=== PATIENT | female | born 1985 | race Caucasian/White ===

== ENCOUNTER 2016-12-18 04:04 | Inpatient (IN) | payer BC, OTHER ==
[2016-12-18] MEDS ORDERED: OBEPIDURAL* 250 ML ONE (05:43)
[2016-12-18 06:32] LABS: Hematocrit 33 % (35-47); Hemoglobin 10.8 g/dl (12.0-16.0); Mean Corpuscular HGB Conc 33 g/dl (31-36); Mean Corpuscular Hemoglobin 27 pg (27-31); Mean Corpuscular Volume 82 fL (80-97); Mean Platelet Volume 8 um3 (7.4-10.4); Red Blood Count 3.97 10^6/ul (4.0-5.4); Red Cell Distribution Width 16 % (10.5-15); White Blood Count 15.7 10^3/ul (3.5-10.8)
[2016-12-18] MEDS ORDERED: fentaNYL* 50 MCG/ML 2 ML VIAL (100 MCG VIAL) ONE ×2 (07:34→13:59)
[2016-12-18] MEDS ORDERED: Sodium Citrate/Citric Acid* 15 ML UDC PO PRN (08:23)
[2016-12-18] MEDS ORDERED: Phenylephrine IV* 40 MCG/ML 10 ML SYRINGE IV PUSH PRN ×2 (08:23)
[2016-12-18] MEDS ORDERED: Famotidine TAB* 20 MG PO PRN (08:23)
[2016-12-18] MEDS ORDERED: OBEPIDURAL* 250 ML EPIDURAL SCH (09:00)
[2016-12-18] MEDS ORDERED: Oxytocin in LR* 20 UNITS/1,000 ML BAG IVPB ONE (09:32)
[2016-12-18] MEDS ORDERED: Oxytocin in LR* 20 UNITS/1,000 ML BAG IVPB SCH (10:00)
[2016-12-18] MEDS ORDERED: Sodium Citrate/Citric Acid* 15 ML UDC ONE (13:28)
[2016-12-18] MEDS ORDERED: ceFOXitin 2 GM IVPREMIX* 2 GM/50 ML BAG ONE (13:28)
[2016-12-18] MEDS ORDERED: ceFOXitin 2 GM IVPREMIX* 2 GM/50 ML BAG IVPB ONE (13:40)
[2016-12-18] MEDS ORDERED: oxyCODONE/Acetamin 5/325 MG* TAB PO PRN ×3 (13:44→14:43)
[2016-12-18] MEDS ORDERED: Witch Hazel PAD* JAR TOPICAL PRN (13:44)
[2016-12-18] MEDS ORDERED: Glycerin ADULT SUPP PR PRN (13:44)
[2016-12-18] MEDS ORDERED: Phenylephrine IV* 40 MCG/ML 10 ML SYRINGE ONE (13:59)
[2016-12-18] MEDS ORDERED: OXYTOCIN* 10 UNITS/ML 1 ML VIAL ONE (13:59)
[2016-12-18] MEDS ORDERED: Morphine PF AMP (0.5MG/ML)* 5 MG/10 ML AMP ONE (13:59)
[2016-12-18] MEDS ORDERED: Sodium Bicarbonate 8.4% IV* 50 ML VIAL ONE (14:00)
[2016-12-18] MEDS ORDERED: Ibuprofen TAB* 600 MG PO SCH (14:00)
[2016-12-18] MEDS ORDERED: Lidocaine 2% PF* 10 ML AMP ONE (14:00)
[2016-12-18] MEDS ORDERED: Ondansetron INJ* 2 MG/ML VIAL IV PRN ×2 (14:31→14:43)
[2016-12-18] MEDS ORDERED: fentaNYL* 50 MCG/ML 2 ML VIAL (100 MCG VIAL) IV PRN (14:31)
[2016-12-18] MEDS ORDERED: Naloxone* 0.4 MG/ML 1 ML VIAL IV PRN (14:43)
[2016-12-18] MEDS ORDERED: diPHENhydraMINE IV* 50 MG/ML 1 ml VIAL (BENADRYL) IV PRN (14:43)
[2016-12-18] MEDS ORDERED: Ondansetron INJ* 2 MG/ML VIAL ONE (14:58)
[2016-12-18] MEDS: Docusate CAP* 100 MG PO SCH ×2 (17:04→22:30)
[2016-12-18] MEDS: Simethicone TAB* 80 MG TAB.CHEW PO SCH (22:31)
[2016-12-18] MEDS: Ketorolac INJ* 30 MG/ML 1 ML VIAL IV PRN (22:32)
[2016-12-19] MEDS: Ketorolac INJ* 30 MG/ML 1 ML VIAL IV PRN (04:41)
--- NOTE | 2016-12-19 06:24 | OP ---
DATE OF OPERATION: 12/18/16 - ROOM #[id number] DATE OF : 85 SURGEON: Soniya Fountain MD BELT SANDER STONE: Katie Corado CNM ANESTHESIOLOGIST: Dr. Jean-Baptiste. ANESTHESIA: Epidural. PRE-OP DIAGNOSIS: 40 weeks gestation with face presentation. POST-OP DIAGNOSIS: 40 weeks gestation with face presentation. OPERATIVE PROCEDURE: Primary low-transverse section. ESTIMATED BLOOD LOSS: 900 cc. URINE OUTPUT: 300 cc. IV FLUIDS: 1300 cc lactated Ringer's. MATERIALS TO LAB: Cord blood. INDICATIONS: This patient was a 31-year-old 1, para 0, who presented in active labor this morning. The patient received an epidural for pain control and she made steady cervical change; however, the head did not descend. When the cervix was 7 cm dilated and the head was still at -2 to -3 station, ultrasound was performed at the bedside and noted that there was still a vertex presentation. I was consulted and on examination the presenting part did not feel smooth, but still also did not feel like umbilical cord or a limb. The membranes are ruptured, productive of thick meconium, and on further palpation with the membranes gone, the face was palpated. As the patient had been in labor for several hours without descent, the fetus was clearly not descending into the pelvis in this malpresentation. She was extensively counseled and I recommended a section. She agreed and consent was signed. FINDINGS: Normal-appearing uterus, fallopian tubes, and ovaries. Delivery was productive of a female infant, weighing 7 pounds 9 ounces, Apgars of 9 and 9. Time of delivery was 1436. Position of the fetus was a face presentation that was somewhat transverse. COMPLICATIONS: None. DESCRIPTION OF PROCEDURE: The risks, benefits, and alternatives were described to the patient and informed consent was obtained. The patient was taken to the operating room with IV running where epidural anesthesia was induced and found to be adequate. The patient was prepped and draped in the normal sterile fashion in the dorsal supine position with leftward tilt. A Pfannenstiel skin incision was made with a scalpel and this was carried down to the underlying fascia sharply. The fascia was then scored in the midline with the scalpel. The incision was extended using Peters scissors. The rectus muscles were dissected off the rectus fascia using blunt and sharp dissection. The rectus muscles were in the midline bluntly. The peritoneum was also entered bluntly. A bladder blade was placed. A bladder flap was created sharply using Metzenbaum scissors. A low transverse uterine incision was made with the scalpel. This was carried down to the amniotic cavity which was productive of clear fluid. The incision was extended with blunt traction. The head was elevated to the level of the incision taking care to avoid injuring the face while lifting. The head was then delivered through the incision. With fundal pressure, the shoulders and body delivered without difficulty. The had excellent tone and cried immediately on delivery. The cord was doubly clamped and cut. The was then handed to the awaiting licensed real estate broker. Cord blood was collected. The placenta then delivered with manual extraction. The uterus was then exteriorized and cleared of all clots and debris. The uterine incision was reapproximated using 0 Polysorb in a running-locked fashion. A second layer of imbricating sutures of 0 Polysorb was also placed with good hemostasis. The posterior cul-de-sac was irrigated with saline. The uterus was then returned to the abdomen, and the incision was reinspected and noted to be hemostatic. The peritoneum was closed with 3-0 Polysorb in a running fashion. The fascia was closed with 0 Polysorb in a running fashion. Subcutaneous tissues were reapproximated using 3-0 Polysorb in interrupted sutures. The skin was then closed with 4-0 Monocryl in a subcuticular stitch. Mastisol and Steri-Strips were placed over the incision which was then covered with a sterile bandage. The patient tolerated the procedure well. Sponge, lap, and needle counts were correct x2. [id number]/[facility] #: [id number] [facility]
[2016-12-19 06:32] LABS: Hematocrit 28 % (35-47); Hemoglobin 9.2 g/dl (12.0-16.0); Mean Corpuscular HGB Conc 34 g/dl (31-36); Mean Corpuscular Hemoglobin 28 pg (27-31); Mean Corpuscular Volume 82 fL (80-97); Mean Platelet Volume 8 um3 (7.4-10.4); Red Blood Count 3.34 10^6/ul (4.0-5.4); Red Cell Distribution Width 16 % (10.5-15); White Blood Count 15.2 10^3/ul (3.5-10.8)
[2016-12-19] MEDS: Simethicone TAB* 80 MG TAB.CHEW PO SCH ×5 (07:53→21:32)
[2016-12-19] MEDS ORDERED: Ibuprofen TAB* 600 MG ONE (08:40)
[2016-12-19] MEDS: Docusate CAP* 100 MG PO SCH ×3 (08:44→21:32)
[2016-12-19] MEDS: Ferrous Gluconate TAB* 324 MG TAB PO SCH ×2 (08:45→21:32)
[2016-12-19] MEDS: oxyCODONE/Acetamin 5/325 MG* TAB PO PRN ×3 (08:46→21:32)
[2016-12-19] MEDS: Ibuprofen TAB* 600 MG PO SCH ×2 (15:11→21:33)
[2016-12-20] MEDS: Ibuprofen TAB* 600 MG PO SCH ×4 (03:31→20:46)
[2016-12-20] MEDS: oxyCODONE/Acetamin 5/325 MG* TAB PO PRN (03:32)
[2016-12-20] MEDS: Docusate CAP* 100 MG PO SCH ×3 (09:29→20:46)
[2016-12-20] MEDS: Simethicone TAB* 80 MG TAB.CHEW PO SCH ×4 (09:30→20:46)
[2016-12-20] MEDS: Ferrous Gluconate TAB* 324 MG TAB PO SCH ×2 (09:30→20:46)
[2016-12-20 21:31] VITALS: BP 121/69
[2016-12-21] MEDS: Ibuprofen TAB* 600 MG PO SCH ×2 (02:40→08:01)
[2016-12-21] MEDS: Docusate CAP* 100 MG PO SCH (08:00)
[2016-12-21] MEDS: Simethicone TAB* 80 MG TAB.CHEW PO SCH (08:01)
[2016-12-21] MEDS: Ferrous Gluconate TAB* 324 MG TAB PO SCH (08:02)
== END 2016-12-21 09:40 | disposition home or self-care (01) | DRG 540 ==
LOC: MCHOBOUT 04:04 → MCHOB 05:20
PROVIDERS: ADMIT Midwife; ATTEND Obstetrics & Gynecology
PROC: 10907ZC Drainage of Amniotic Fluid, Therapeutic from Products of Conception, Via Natural or Artificial Opening (ICD-10-PCS; 2016-12-18)
PROC: 10D00Z1 Extraction of Products of Conception, Low, Open Approach (ICD-10-PCS; principal; 2016-12-18 14:06)
DX: O32.3XX0 Maternal care for face, brow and chin presentation, not applicable or unspecified (principal); E66.01 Morbid (severe) obesity due to excess calories; O77.0 Labor and delivery complicated by meconium in amniotic fluid; O99.214 Obesity complicating childbirth; O90.81 Anemia of the puerperium; O99.344 Other mental disorders complicating childbirth; F41.9 Anxiety disorder, unspecified; D64.9 Anemia, unspecified; Z68.39 Body mass index [BMI] 39.0-39.9, adult; Z3A.40 40 weeks gestation of pregnancy; Z37.0 Single live birth
CPT/HCPCS: 36415; 76815; 85025; 86850; 86900; 86901; A9270-GY; J0694; J1885; J2001; J2405; J2590; J3010

== ENCOUNTER 2019-04-02 18:37 | Emergency (ER) | payer BC, OTHER ==
[2019-04-02 19:37] LABS: ABS Eosinophils 0.1 10^3/ul (0-0.6); ABS Lymphocytes 2.7 10^3/ul (1.0-4.8); ABS Monocytes 0.8 10^3/ul (0-0.8); ABS Neutrophils 9.7 10^3/ul (1.5-7.7); Eosinophil % 0.6 %; Hematocrit 32 % (35-47); Hemoglobin 11.2 g/dL (12.0-16.0); Lymphocyte % 20.2 %; Mean Corpuscular HGB Conc 36 g/dL (31-36); Mean Corpuscular Hemoglobin 30 pg (27-31); Mean Corpuscular Volume 84 fL (80-97); Mean Platelet Volume 7.5 fL (7.4-10.4); Platelet Count 355 10^3/uL (150-450); Red Blood Count 3.76 10^6 /uL (3.70-4.87); Red Cell Distribution Width 14 % (10-15); White Blood Count 13.3 10^3/uL (3.5-10.8)
--- NOTE | 2019-04-02 19:43 | ED ---
HPI Chest Pain - HPI Summary HPI Summary: Patient is a 33 y/o F presenting to the ED for a chief complaint of intermittent palpitations that began around 13:00 on 04/01/19 and continued into 04/02/19. Patient is present with her mother. Patient describes the palpitations as a "flutter" and "irregular" sensation. The palpitations are described as intermittent and lasting for 3-10 seconds before resolving. She also notes a headache that she attributes to being . Patient denies lightheadedness, dizziness, shortness of breath, diaphoresis, or nausea. She reports life changes recently, so she suspects her symptoms could be due to anxiety. Patient exercises, but denies any changes in exercise habits since the start of her . Patient is currently 18 weeks , and this is her second . During her last , she had similar palpitations and anxiety. PMHx is significant for PCOS and anxiety for which she took Lexapro, which she stopped taking in 2016. Any history of cardiac problems is denied. Patient notes being tested in 2006 for thyroid issues without any remarkable findings. She denies tobacco use. - History of Current Complaint Chief Complaint: EDDysrhythmPalp Time Seen by Provider: 04/02/19 19:33 Hx Obtained From: Patient Onset/Duration: Started Hours Ago - On 04/01/19, Atraumatic, Still Present Timing: Intermittent, Lasting Seconds - 3-10 seconds Initial Severity: Moderate Current Severity: Moderate Pain Intensity: 4 Pain Scale Used: 0-10 Numeric Chest Pain Location: Diffuse Chest Pain Radiates: No Character: Fluttering Aggravating Factor(s): Other: - Recent stress Alleviating Factor(s): Nothing Associated Signs and Symptoms: Positive: Headaches, Palpitations. Negative: Dizziness, Shortness of Breath, Lightheadedness, Diaphoresis, Nausea - Allergy/Home Medications Allergies/Adverse Reactions: Allergies Allergy/AdvReac Type Severity Reaction Status Date / Time amoxicillin [From Augmentin] Allergy Diarrhea Verified 04/02/19 19:55 clavulanic acid Allergy Diarrhea Verified 04/02/19 19:55 [From Augmentin] Latex, Natural Rubber Allergy Rash Verified 04/02/19 19:55 PMH/Surg Hx/FS Hx/Imm Hx Previously Healthy: Yes Endocrine/Hematology History: Denies: Hx Diabetes History: Reports: Other Problems/Disorders - PCOS Sensory History: Denies: Hx Legally Blind, Hx Deafness Opthamlomology History: Denies: Hx Legally Blind EENT History: Denies: Hx Deafness Psychiatric History: Reports: Hx Anxiety - no meds - Surgical History Surgical History: None Surgery Procedure, Year, and Place: None Infectious Disease History: No Infectious Disease History: Denies: Traveled Outside the [place] in Last 30 Days - Family History Known Family History: Negative: Diabetes - Social History Occupation: Employed Full-time Lives: With Family Alcohol Use: None Hx Substance Use: No Substance Use Type: Reports: None Hx Tobacco Use: No Smoking Status (MU): Never Smoked Tobacco Review of Systems Negative: Skin Diaphoresis Positive: Palpitations Negative: Shortness Of Breath Negative: Nausea Neurological: Other - Negative lightheadedness or dizziness Positive: Headache Positive: Anxious All Other Systems Reviewed And Are Negative: Yes Physical Exam - Summary Physical Exam Summary: Appearance: Well-appearing, Well-nourished, lying in bed comfortably Skin: Warm, dry, no obvious rash Eyes: sclera anicteric, no conjunctival pallor ENT: mucous membranes moist, pharynx appears normal Neck: Supple, nontender Respiratory: Clear to auscultation, no signs of respiratory distress Cardiovascular: Normal S1, S2. No murmurs. Normal distal pulses in tibial and radial bilaterally. Abdomen: Soft, nontender, normal active bowel sounds present Musculoskeletal: Normal, Strength/ROM Intact Neurological: A&Ox3, awake and alert, mentation is normal, speech is fluent and appropriate Psychiatric: affect is normal, does not appear anxious or depressed Triage Information Reviewed: Yes Vital Signs On Initial Exam: Initial Vitals Temp Pulse Resp BP Pulse Ox 98.0 F 96 18 159/88 100 04/02/19 18:38 04/02/19 18:38 04/02/19 18:38 04/02/19 18:38 04/02/19 18:38 Vital Signs Reviewed: Yes Procedures - Sedation Patient Received Moderate/Deep Sedation with Procedure: No Diagnostics - Vital Signs Vital Signs Temp Pulse Resp BP Pulse Ox 04/02/19 18:38 98.0 F 96 18 159/88 100 - Laboratory Result Diagrams: 04/02/19 19:22 04/02/19 19:22 Lab Statement: Any lab studies that have been ordered have been reviewed, and results considered in the medical decision making process. - EKG 18:43 Cardiac Rate: NL - 97 BPM EKG Rhythm: Sinus Rhythm ST Segment: Normal Ectopy: None Summary of EKG Findings: EKG at 18:43 shows NSR at 97 BPM, P waves, QRS complex , and T waves are within normal limits, T waves and intervals are normal, no ischemic changes, no STEMI. This is a normal EKG. Reviewed and interpreted by Dr. Osorio. Chest Pain Course/Dx - Course Course Of Treatment: Patient is a 33 y/o F presenting to the ED for a chief complaint of intermittent palpitations that began around 13:00 on 04/01/19 and continued into 04/02/19. Patient is present with her mother. Patient describes the palpitations as a "flutter" and "irregular" sensation. The palpitations are described as intermittent and lasting for 3-10 seconds before resolving. She also notes a headache that she attributes to being . Patient denies lightheadedness, dizziness, shortness of breath, diaphoresis, or nausea. She reports life changes recently, so she suspects her symptoms could be due to anxiety. Patient exercises, but denies any changes in exercise habits since the start of her . Patient is currently 18 weeks , and this is her second . During her last , she had similar palpitations and anxiety. PMHx is significant for PCOS and anxiety for which she took Lexapro, which she stopped taking in 2017. Any history of cardiac problems is denied. Patient notes being tested in 2006 for thyroid issues without any remarkable findings. She denies tobacco use. On exam, unremarkable findings. EKG at 18: 43 shows NSR at 97 BPM, P waves, QRS complex, and T waves are within normal limits, T waves and intervals are normal, no ischemic changes, no STEMI. This is a normal EKG. Laboratory abnormal findings: WBC 13.3, Hgb 11.2, Hct 32, absolute neuts 9.7, INR 1.14, magnesium 1.7, AST 12. Patient will be discharged with a diagnosis of palpitations. Follow up with PCP as needed. - Diagnoses Provider Diagnoses: Palpitations Discharge ED - Sign-Out/Discharge Documenting (check all that apply): Patient Departure - Discharge - Discharge Plan Condition: Good Disposition: HOME Patient Education Materials: Heart Palpitations (ED) Referrals: Nanda Orellana MD [Primary Care Provider] - Additional Instructions: I think an evaluation by a chairman and ceo would be reasonable. They will likely set you up with an ambulatory heart rhythm monitor of some type to formally diagnose these episodes. They certainly sound like premature atrial contractions , which are very benign, but it would be good to rule out other arrhythmias with certainty. - Billing Disposition and Condition Condition: GOOD Disposition: Home - Attestation Statements Document Initiated by Juan Carlos: Yes Documenting Scribe: Kimi Lagos Provider For Whom Juan Carlos is Documenting (Include Credential): Anil Osorio MD Scribe Attestation: I, Kimi Lagos, scribed for Anil Osorio MD on 04/02/19 at 2046. Scribe Documentation Reviewed: Yes Provider Attestation: The documentation as recorded by the Kimi thornton accurately reflects the service I personally performed and the decisions made by me, Anil Osorio MD Status of Scribe Document: Viewed
[2019-04-02 19:48] LABS: INR 1.14 (0.82-1.09)
[2019-04-02 19:56] LABS: Albumin 3.9 g/dL (3.2-5.2); Albumin/Globulin Ratio 1.3 (1-3); BUN/Creatinine Ratio 18.2 (8-20); Calcium 9.2 mg/dL (8.6-10.3); EGFR Non-African American 127.3 (>60); Globulin 2.9 g/dL (2-4); Magnesium 1.7 mg/dL (1.9-2.7); Potassium 3.8 mmol/L (3.5-5.0); Total Bilirubin 0.3 mg/dL (0.2-1.0); Total Protein 6.8 g/dL (6.4-8.9); Troponin I 0.01 ng/mL (<0.03)
[2019-04-02 20:21] VITALS: BP 134/77
== END 2019-04-02 20:25 | disposition home or self-care (01) ==
LOC: ED 18:37
DX: R00.2 Palpitations (principal); O26.892 Other specified pregnancy related conditions, second trimester; O99.342 Other mental disorders complicating pregnancy, second trimester; F41.9 Anxiety disorder, unspecified; Z3A.18 18 weeks gestation of pregnancy; Z88.0 Allergy status to penicillin; Z88.1 Allergy status to other antibiotic agents; Z91.040 Latex allergy status
CPT/HCPCS: 36415; 80053; 83735; 84443; 84484; 85025; 85610; 93005; 99282

== ENCOUNTER 2019-08-26 05:46 | Inpatient (IN) ==
[2019-08-24 13:54] LABS: ABS Eosinophils 0.1 10^3/ul (0-0.6); ABS Lymphocytes 2.6 10^3/ul (1.0-4.8); ABS Monocytes 0.7 10^3/ul (0-0.8); Eosinophil % 0.6 %; Hematocrit 31 % (35-47); Hemoglobin 10.3 g/dL (12.0-16.0); Lymphocyte % 22.5 %; Mean Corpuscular HGB Conc 33 g/dL (31-36); Mean Corpuscular Hemoglobin 28 pg (27-31); Mean Corpuscular Volume 84 fL (80-97); Mean Platelet Volume 7.8 fL (7.4-10.4); Platelet Count 342 10^3/uL (150-450); Red Blood Count 3.69 10^6 /uL (3.70-4.87); Red Cell Distribution Width 15 % (10-15); White Blood Count 11.4 10^3/uL (3.5-10.8)
[2019-08-26] MEDS ORDERED: ceFOXitin 2 GM IVPREMIX (*) 2 GM/50 ML BAG IVPB ONE (06:00)
[2019-08-26] MEDS ORDERED: fentaNYL 100 mcg/2 ml 50 MCG/ML VIAL ONE (07:10)
[2019-08-26] MEDS ORDERED: Morphine PF AMP (0.5MG/ML) 5 MG/10 ML AMP ONE (07:11)
[2019-08-26] MEDS ORDERED: Sodium Citrate/Citric Acid LIQ 15 ML UDC PO ONE (07:27)
[2019-08-26] MEDS ORDERED: Famotidine IV 10 MG/ML 2 ml VIAL (20 mg) IV ONE (07:31)
[2019-08-26] MEDS ORDERED: Famotidine IV 10 MG/ML 2 ml VIAL (20 mg) ONE (07:32)
[2019-08-26] MEDS ORDERED: Phenylephrine 40 mcg/mL 10mL (400mcg) SYRINGE ONE (07:40)
[2019-08-26] MEDS ORDERED: Naloxone 0.4 mg VIAL 0.4 mg/ml 1 ml VIAL IV PRN ×2 (07:47→09:09)
[2019-08-26] MEDS ORDERED: fentaNYL 100 mcg/2 ml 50 MCG/ML VIAL IV PRN (07:47)
[2019-08-26] MEDS ORDERED: DiMENhydriNATE IV 50 mg/ml 1 ml VIAL IV PUSH PRN (07:47)
[2019-08-26 08:33] LABS: Urine Benzodiazepine Screen None Detected (None Detect); Urine Opiates Screen None Detected (None Detect)
[2019-08-26] MEDS ORDERED: Oxytocin 10 UNITS/ML 1 ML VIAL ONE (08:41)
[2019-08-26] MEDS ORDERED: oxyCODONE/Acetamin 5/325 mg TAB PO PRN ×2 (09:09)
[2019-08-26] MEDS ORDERED: Ondansetron 4 mg VIAL 2 MG/ML 2 ml VIAL IV PRN (09:09)
[2019-08-26] MEDS ORDERED: Witch Hazel PAD JAR TOPICAL PRN (10:12)
[2019-08-26] MEDS ORDERED: Lactated Ringers 1000 ml BAG 1,000 ML IV SCH (11:00)
[2019-08-27 06:42] LABS: ABS Basophils 0.1 10^3/ul (0-0.2); ABS Eosinophils 0.1 10^3/ul (0-0.6); ABS Lymphocytes 1.7 10^3/ul (1.0-4.8); ABS Monocytes 0.6 10^3/ul (0-0.8); Eosinophil % 0.7 %; Hematocrit 26 % (35-47); Hemoglobin 8.9 g/dL (12.0-16.0); Lymphocyte % 15.8 %; Mean Corpuscular HGB Conc 34 g/dL (31-36); Mean Corpuscular Hemoglobin 28 pg (27-31); Mean Corpuscular Volume 84 fL (80-97); Mean Platelet Volume 7.7 fL (7.4-10.4); Platelet Count 272 10^3/uL (150-450); Red Blood Count 3.11 10^6 /uL (3.70-4.87); Red Cell Distribution Width 15 % (10-15)
[2019-08-28 08:06] VITALS: BP 108/53
== END 2019-08-28 13:00 | disposition home or self-care (01) | DRG 540 ==
LOC: MCHOB 05:46
PROVIDERS: ADMIT Obstetrics & Gynecology; ATTEND Obstetrics & Gynecology